=== PATIENT | male | born 1955 | race Caucasian/White ===

== ENCOUNTER 2018-06-12 20:36 | Emergency (ER) | payer MEDICAID, OTHER ==
[~2018-06-12] VITALS: Ht 167.6 cm; Wt 78.9 kg
[~2018-06-12 20:36] MED LIST: IBUPROFEN600 MG ORAL; LITHIUM CARBON300 MG ORAL; RISPERDAL2 MG ORAL
[2018-06-12] MEDS ORDERED: IBUPROFEN600 MG ORAL (20:47)
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
[2018-06-12 21:04] VITALS: BP 165/82
[2018-06-12 21:30] VITALS: BP 161/83
--- NOTE | 2018-06-13 11:30 | Diagnostic Imaging Report ---
Indication: Pain status post injury Technique: XRAY Wrist Complete R Comparison: None Findings: Bone mineralization within normal limits. There is a lucency through the triquetrum noted on lateral view. This is concerning for a fracture of indeterminate age, possibly subacute or chronic. There is some soft tissue swelling. No radiopaque foreign body identified. Impression: Age-indeterminate fracture of the triquetrum, possibly subacute or chronic. Correlate for point tenderness in this area. This corresponds with the preliminary interpretation of the treating ER physician, as documented in the electronic medical record.
== END 2018-06-12 21:25 | disposition home or self-care (01) ==
LOC: EDBD 20:36 → EMR 21:04
DX: S60.211A Contusion of right wrist, initial encounter (principal); S62.111A Displaced fracture of triquetrum [cuneiform] bone, right wrist, initial encounter for closed fracture; Y04.2XXA Assault by strike against or bumped into by another person, initial encounter; Y92.89 Other specified places as the place of occurrence of the external cause; Z88.6 Allergy status to analgesic agent; Z88.8 Allergy status to other drugs, medicaments and biological substances; Z91.040 Latex allergy status; I10 Essential (primary) hypertension; J43.9 Emphysema, unspecified
CPT/HCPCS: 99283